=== PATIENT | female | born 1970 | race Caucasian/White ===

== ENCOUNTER 2020-11-13 12:28 | Emergency (ER) | payer MEDICARE, OTHER ==
[2020-11-13 13:44] LABS: HEMOGLOBIN 13.9 gm/dl (12.3-15.3); RED BLOOD COUNT 4.78 M/UL (4.00-5.10)
[2020-11-13 14:18] LABS: BUN/CREATININE RATIO 27 (0-10)
[2020-11-13] MEDS ORDERED: AZITHROMYCIN250 MG PO (14:51)
[2020-11-13] MEDS ORDERED: VENTOLIN HFA 66.7 GM INH (14:58)
== END 2020-11-13 15:49 | disposition home or self-care (01) ==
LOC: ER1 12:28
PROVIDERS: Emergency Medicine
DX: U07.1 COVID-19 (principal); J12.82 Pneumonia due to coronavirus disease 2019; E87.6 Hypokalemia
CPT/HCPCS: 0240U; 71045; 80053; 82550; 82553; 83874; 84484; 85025; 85379; 86140; 99285